=== PATIENT | female | born 1995 | race Caucasian/White ===

== ENCOUNTER 2017-01-31 05:06 | Emergency (ER) | payer OTHER ==
[~2017-01-31 05:06] MED LIST: COLACE 100MG C100 MG PO
[2017-01-31 06:41] LABS: HEMOGLOBIN 12.5 gm/dl (12.3-15.3); RED BLOOD COUNT 4.33 M/UL (4.00-5.10); WHITE BLOOD COUNT 6.7 K/UL (4.5-11.0)
[2017-01-31 06:56] LABS: BUN/CREATININE RATIO 17 (0-10)
== END 2017-01-31 09:45 | disposition home or self-care (01) ==
LOC: ER1 05:06
PROVIDERS: Physician Assistant
DX: K80.70 Calculus of gallbladder and bile duct without cholecystitis without obstruction (principal); Z88.2 Allergy status to sulfonamides
CPT/HCPCS: 36415; 76705; 80053; 81001; 82150; 83690; 84703; 85025; 99284

== ENCOUNTER → 2021-04-17 | Outpatient (CLI) | payer OTHER ==
[~2021-04-17] MED LIST changes: +AUGMENTIN 875-1 EACH PO; +CLARITIN10 M1 PO; +KEFLEX CAP 500500 MG PO; +PRENATAL VITAM1 EAC8 PO; +TYLENOL 500 MG500 MG PO
== END ==
LOC: HEART CORB 12:56
DX: R07.89 Other chest pain (principal); R00.2 Palpitations; R00.0 Tachycardia, unspecified
CPT/HCPCS: 93306